=== PATIENT | female | born 1980 | race African-American/Black ===

== ENCOUNTER 2019-03-29 02:13 | Emergency (ER) | payer OTHER ==
[~2019-03-29] VITALS: Ht 154.9 cm; Wt 78.7 kg
[2019-03-29 03:00] LABS: BASO # 0.1 10^3/uL (0.0-0.2); EOS # 0.2 10^3/uL (0.0-0.5); EOS % 3.9 % (0.0-3.0); HEMATOCRIT 35.7 % (36.0-47.0); HEMOGLOBIN 11.9 g/dl (12.0-15.5); LYMPH # 3.1 10^3/uL (1.5-5.0); LYMPH % 51.1 % (24.0-44.0); MEAN CORPUSCULAR HEMOGLOBIN 27.1 pg (27.0-33.0); MEAN CORPUSCULAR HGB CONC 33.3 g/dl (32.0-36.5); MEAN CORPUSCULAR VOLUME 81.3 fl (80.0-96.0); MONO # 0.4 10^3/uL (0.0-0.8); MONO % 6.7 % (0.0-5.0); NEUTROPHILS # 2.3 10^3/uL (1.5-8.5); NEUTROPHILS % 37.1 % (36.0-66.0); PLATELET COUNT, AUTOMATED 241 10^3/uL (150-450); RED BLOOD COUNT 4.39 10^6/uL (4.00-5.40); WHITE BLOOD COUNT 6.1 10^3/uL (4.0-10.0)
[2019-03-29] MEDS ORDERED: ASPIRIN 325 MG TAB PO ONE (03:15)
[2019-03-29 03:29] LABS: BLOOD UREA NITROGEN 20 MG/DL (7-18); CALCIUM LEVEL 8.7 MG/DL (8.5-10.1); CARBON DIOXIDE LEVEL 29 MEQ/L (21-32); CHLORIDE LEVEL 106 MEQ/L (98-107); CK-MB VALUE MASS < 1.0 NG/ML (<3.6); CPK CREATINE PHOSPHOKINASE 96 U/L (26-192); CREATININE FOR GFR 0.83 MG/DL (0.55-1.30); GLOMERULAR FILTRATION RATE > 60.0 (>60); GLUCOSE, FASTING 85 MG/DL (70-100); MB/CK RELATIVE INDEX 1.04 (< OR =4); POTASSIUM SERUM 3.5 MEQ/L (3.5-5.1); SODIUM LEVEL 141 MEQ/L (136-145); TROPONIN I < 0.02 NG/ML (< 0.10)
[2019-03-29 03:35] LABS: FREE T4 0.88 NG/DL (0.76-1.46); MAGNESIUM LEVEL 1.8 MG/DL (1.8-2.4); PHOSPHORUS LEVEL 3.1 MG/DL (2.5-4.9); THYROID STIMULATING HORMONE 2.94 uIU/ML (0.358-3.740)
--- NOTE | 2019-03-29 07:14 | ECGEPIP ---
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
--- NOTE | 2019-03-29 08:01 | REP ---
Portable chest x-ray: Single view. History: Chest pain. Findings: The lungs are symmetrically aerated and clear. Pleural angles are sharp. Heart size is normal. Pulmonary vasculature is not increased. No bony abnormality is seen. Impression: Negative portable chest x-ray. Electronically Signed by Surya Rogel MD 03/29/2019 07:52 A
[2019-03-29 09:04] LABS: CK-MB VALUE MASS < 1.0 NG/ML (<3.6); CPK CREATINE PHOSPHOKINASE 91 U/L (26-192); TROPONIN I < 0.02 NG/ML (< 0.10)
[2019-03-29 09:12] VITALS: BP 126/82
--- NOTE | 2019-03-29 19:01 | ECGEPIP ---
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
== END 2019-03-29 09:21 | disposition home or self-care (01) ==
LOC: M ED 02:13 → EDSEX 02:13 → M ED 09:21
DX: R00.2 Palpitations (principal); R06.02 Shortness of breath; I48.91 Unspecified atrial fibrillation; G43.909 Migraine, unspecified, not intractable, without status migrainosus

== ENCOUNTER → 2019-04-19 | Outpatient (CLI) | payer OTHER ==
--- NOTE | 2019-04-19 13:21 | REPMRS ---
Patient History Family history of lung cancer in paternal grandfather, colorectal cancer in father, breast cancer in paternal grandmother, breast cancer in paternal aunt. Taking hormonal contraceptives for 4 years. Digital Mammo Screening Bilat: April 19, 2019 - Exam #: [id number] Bilateral CC and MLO view(s) were taken. Technologist: Naty Jones, Technologist No prior studies available for comparison. FINDINGS: The breast tissue is extremely dense which could obscure a lesion on mammography. There is no evidence of cancer on this mammogram. Assessment: BI-RADS/ACR category 2 mammogram. Benign Findings. Recommendation Routine screening mammogram of both breasts in 1 year (for women over age 40). This mammogram was interpreted with the aid of an FDA-approved computer-aided dectection system. THE LIFETIME RISK OF BREAST CANCER IS 21.2%, THEREFORE SUPPLEMENTAL SCREENING MRI OF THE BREASTS IS RECOMMENDED IN 6 MONTHS. Electronically Signed By: Davide May MD 04/19/19 [id number]
== END ==
LOC: M RAD 11:38
PROVIDERS: ATTEND Family Medicine
DX: Z12.31 Encounter for screening mammogram for malignant neoplasm of breast (principal); Z80.3 Family history of malignant neoplasm of breast; Z80.1 Family history of malignant neoplasm of trachea, bronchus and lung

== ENCOUNTER → 2019-08-16 | Outpatient (REF) | payer OTHER ==
[~2019-08-16] MED LIST: CVS5000S2 SL; PAPATAB3 PO
== END ==
LOC: M SFHCLERA 11:20
PROVIDERS: ATTEND Nurse Practitioner Family
DX: R68.89 Other general symptoms and signs (principal)

== ENCOUNTER → 2021-04-27 | Outpatient (CLI) | payer OTHER ==
--- NOTE | 2021-04-27 10:13 | REPMRS ---
Patient History The patient states she has not had a clinical breast exam in over a year. Family history of unknown cancer in paternal grandfather, colorectal cancer in father and again in father, breast cancer in paternal grandmother, breast cancer in paternal aunt. Taking hormonal contraceptives for 4 years. Tomosynthesis is performed. [place] breast density is d. Digital Woman Screen Mammo: April 27, 2021 - Exam #: [id number] Bilateral CC and MLO view(s) were taken. Technologist: Marcella Dougherty, Technologist Prior study comparison: April 19, 2019, bilateral digital mammo screening bilat, performed at [facility]. FINDINGS: The breast tissue is extremely dense which could obscure a lesion on mammography. There has been no change in the appearance of the mammogram from the prior studies. There is a moderate amount of residual fibroglandular tissue which is fairly symmetric. There is no interval development of dominant mass, areas of architectural distortion, or clustered microcalcification typical of malignancy. Assessment: BI-RADS/ACR category 1 mammogram. Negative Mammogram. Recommendation Routine screening mammogram in 1 year (for women over age 40). This mammogram was interpreted with the aid of an FDA-approved computer-aided dectection system. The Lifetime Breast Cancer Risk is estimated at 20.8%. Yearly supplemental screening MRI of the breasts is recommended for patients with an elevated lifetime risk of breast cancer of 20% or greater, in addition to annual screening mammography, staggered every 6 months. Electronically Signed By: Davide May MD 04/27/21 1012
== END ==
LOC: M WHC 09:19
PROVIDERS: ATTEND Family Medicine
DX: Z12.31 Encounter for screening mammogram for malignant neoplasm of breast (principal); Z80.0 Family history of malignant neoplasm of digestive organs; Z80.3 Family history of malignant neoplasm of breast

== ENCOUNTER → 2021-11-23 | Outpatient (REF) | payer OTHER | LOC: M LAB REF 11:58 | PROVIDERS: ATTEND Physician Assistant | DX: J02.9 Acute pharyngitis, unspecified (principal) ==

== ENCOUNTER → 2022-05-12 | Outpatient (CLI) | payer OTHER | LOC: M WHC 14:08 | PROVIDERS: ATTEND Family Medicine | DX: Z12.31 Encounter for screening mammogram for malignant neoplasm of breast (principal) ==